=== PATIENT | female | born 1970 | race African-American/Black ===

== ENCOUNTER 2021-06-22 22:26 | Emergency (ER) | payer MEDICAID ==
[~2021-06-22] VITALS: Ht 160 cm; Wt 90.7 kg
[2021-06-22 22:40] VITALS: BP 150/85
== END 2021-06-23 01:58 | disposition left against medical advice (07) ==
LOC: ER 22:26
DX: S40.862A Insect bite (nonvenomous) of left upper arm, initial encounter (principal); S40.861A Insect bite (nonvenomous) of right upper arm, initial encounter; Z53.21 Procedure and treatment not carried out due to patient leaving prior to being seen by health care provider; W57.XXXA Bitten or stung by nonvenomous insect and other nonvenomous arthropods, initial encounter; Y93.89 Activity, other specified; Y92.89 Other specified places as the place of occurrence of the external cause; Y99.8 Other external cause status